=== PATIENT | male | born 1960 | race Caucasian/White ===

== ENCOUNTER 2023-06-23 08:00 | Outpatient (OUT) | payer SELFPAY ==
[2023-06-23] MEDS: COVID VAC 23-24(12UP)MODERNA/PF 50 MCG/0.5 ML VIAL IM (15:00)
== END 2023-06-23 08:01 | disposition home or self-care (01) ==
LOC: VACCLI 08-12 09:51
DX: Z23 Encounter for immunization (principal)
CPT/HCPCS: 90480; 91322